=== PATIENT | female | born 1995 | race Caucasian/White ===

== ENCOUNTER 2016-09-28 10:09 | Emergency (ER) | payer OTHER ==
[2016-09-28 10:20] VITALS: BP 117/78
--- NOTE | 2016-09-28 10:22 | EDM.PDOC ---
<Marcela Smith - Last Filed: 09/28/16 10:40> ED HPI RENAL/ - General Chief Complaint: Genitourinary Problem Stated Complaint: UTI Time Seen by Provider: 09/28/16 10:20 - History of Present Illness INITIAL COMMENTS - FREE TEXT/NARRATIVE: Patient presents to the ER with c/o burning, frequency, urgency, dysuria for about 1 week. She states she drank quite a bit of cranberry juice and she thought the symptoms had improved, but last night the symptoms returned. She denies fever/chills, N/V/D. LMP 09/19/16. Symptom Onset Date: 09/21/16 Timing/Duration: Reports: Intermittent Location: Reports: urethral Quality: Reports: burning Severity: moderate Worsens with: Reports: urinating Associated Symptoms: Reports: burning, dysuria, frequency, urgency, voiding small amounts - Related Data Allergies/ADRs: Allergies Allergy/AdvReac Type Severity Reaction Status Date / Time Penicillins Allergy Blisters Verified 09/28/16 10:22 Home Meds: Home Meds . [No Known Home Meds] 09/28/16 [History] ED ROS GENERAL - Review of Systems Review Of Systems: ROS reveals no pertinent complaints other than HPI. ED EXAM, RENAL/ - Physical Exam Exam: See Below Exam Limited By: No limitations General Appearance: alert, WD/WN, no apparent distress Eye Exam: bilateral eye: normal inspection Ears: normal external exam, normal canal, hearing grossly normal, normal TMs Nose: normal inspection, normal mucosa, no blood Throat/Mouth: Normal inspection, Normal lips, Normal teeth, Normal gums, Normal oropharynx, Normal voice, No airway compromise Head: atraumatic, normocephalic Neck: normal inspection, supple, non-tender, full range of motion Respiratory/Chest: no respiratory distress, lungs clear, normal breath sounds, no accessory muscle use, chest non-tender Cardiovascular: normal peripheral pulses, regular rate, rhythm, no edema, no gallop, no JVD, no murmur, no rub GI/Abdominal: normal bowel sounds, soft, non tender, no organomegaly, no distention, no abnormal bruit, no mass (Female) Exam: Deferred Rectal (Female) Exam: Deferred Back Exam: normal inspection, full range of motion, NT Extremities: normal inspection, normal range of motion, non-tender, normal capillary refill, no pedal edema Neurological: alert, oriented, CN II-XII intact, normal cognition, normal gait, normal reflexes, no motor/sensory deficits Psychiatric: normal affect, normal mood Skin Exam: Warm, Dry, Intact, Normal color, No rash Lymphatic: no adenopathy Course - Vital Signs Last Recorded V/S: Last Vital Signs Temp 36.6 C 09/28/16 10:19 Pulse 63 09/28/16 10:19 Resp 16 09/28/16 10:19 BP 117/78 09/28/16 10:19 Pulse Ox 100 09/28/16 10:19 - Orders/Labs/Meds Orders: Active Orders 24 hr Category Date Time Status CULTURE URINE [RM] Stat Lab 09/28/16 10:16 Received Labs: Laboratory Tests 09/28/16 09/28/16 Range/Units 10:16 10:16 Urine Color Light yellow (YELLOW) Urine Appearance Turbid (CLEAR) Urine pH 7.5 (5.0-9.0) Ur Specific [place] 1.020 (1.005-1.030) Urine Protein 30 H (NEGATIVE) Urine Glucose (UA) Negative (NEGATIVE) Urine Ketones Negative (NEGATIVE) Urine Occult Blood Large H (NEGATIVE) Urine Nitrite Negative (NEGATIVE) Urine Bilirubin Negative (NEGATIVE) Urine Urobilinogen 0.2 (0.2-1.0) mg/dL Ur Leukocyte Esterase Large H (NEGATIVE) Urine RBC 50-75 H /HPF Urine WBC >100 H (0-5/HPF) /HPF Ur Epithelial Cells Moderate H /HPF Urine Bacteria Many H (0-FEW/HPF) /HPF Urine HCG, Qual Negative Departure - Departure Time of Disposition: 10:34 Disposition: Home, Self-Care 01 Condition: good Clinical Impression: UTI, Urinary tract infectious disease Instructions: Urinary Tract Infection, Adult, [id number] Forms: ED Department Discharge Additional Instructions: Macrobid 100m orally twice daily for 7 days. Drink lots of fluid. Follow up with primary care provider in 7 to 10 days for urine recheck. <Pascual Adler - Last Filed: 09/28/16 10:41> ED HPI RENAL/ - General Source of Information: Reports: Patient, RN, RN notes reviewed History Limitations: Reports: No limitations Social & Family History - Family History Family Medical History: Noncontributory - Living Situation & Occupation Living situation: Reports: with family ED ROS GENERAL - Review of Systems Review Of Systems: ROS reveals no pertinent complaints other than HPI. Course - Orders/Labs/Meds Labs: Laboratory Tests 09/28/16 09/28/16 Range/Units 10:16 10:16 Urine Color Light yellow (YELLOW) Urine Appearance Turbid (CLEAR) Urine pH 7.5 (5.0-9.0) Ur Specific [place] 1.020 (1.005-1.030) Urine Protein 30 H (NEGATIVE) Urine Glucose (UA) Negative (NEGATIVE) Urine Ketones Negative (NEGATIVE) Urine Occult Blood Large H (NEGATIVE) Urine Nitrite Negative (NEGATIVE) Urine Bilirubin Negative (NEGATIVE) Urine Urobilinogen 0.2 (0.2-1.0) mg/dL Ur Leukocyte Esterase Large H (NEGATIVE) Urine RBC 50-75 H /HPF Urine WBC >100 H (0-5/HPF) /HPF Ur Epithelial Cells Moderate H /HPF Urine Bacteria Many H (0-FEW/HPF) /HPF Urine HCG, Qual Negative - Re-Assessments/Exams Free Text/Narrative Re-Assessment/Exam: 09/28/16 10:21 FOR THIS ENCOUNTER THE PATIENT WAS SEEN IN CONJUNCTION WITH [facility] STUDENT MARCELA SMITH. ALL PATIENT CARE AND/OR PROCEDURE(S), DIAGNOSTIC ORDERS, MEDICATION(S) AND TREATMENT ORDERS, DISPOSITION ORDERS/PLANNING, AND DISCHARGE/FOLLOW UP INSTRUCTIONS WERE UNDER MY DIRECT SUPERVISION. jocy
== END 2016-09-28 10:45 | disposition home or self-care (01) ==
LOC: DL.ED 10:09
DX: N39.0 Urinary tract infection, site not specified (principal); Z88.0 Allergy status to penicillin
CPT/HCPCS: 81001; 81025; 87086; 99283

== ENCOUNTER 2017-03-09 04:20 | Observation (INO) | payer OTHER ==
--- NOTE | 2017-03-09 04:22 | EDM.PDOCBH ---
ED HPI GENERAL MEDICAL PROBLEM - General Stated Complaint: IN BY [facility] Time Seen by Provider: 03/09/17 04:20 Source of Information: Reports: Patient, EMS History Limitations: Reports: No Limitations - History of Present Illness INITIAL COMMENTS - FREE TEXT/NARRATIVE: EMS state pt's boy friend called re; pt leaving note taking meds to kill herself which pt denies. pt states never took any pills at all. Headache Pain Score (Numeric/FACES): 8 - Related Data Allergies Allergy/AdvReac Type Severity Reaction Status Date / Time Penicillins Allergy Blisters Verified 03/09/17 04:21 Home Meds: Home Meds . [No Known Home Meds] 09/28/16 [History] Past Medical History - Infectious Disease History Infectious Disease History: Reports: None - Past Surgical History HEENT Surgical History: Reports: Eye Surgery, Oral Surgery, Tonsillectomy Social & Family History - Family History Family Medical History: Noncontributory - Tobacco Use Smoking Status *Q: Current Every Day Smoker Years of Tobacco use: 2 Packs/Tins Daily: 0.5 - Caffeine Use Caffeine Use: Reports: None - Recreational Drug Use Recreational Drug Use: No - Living Situation & Occupation Living situation: Reports: with Family ED ROS GENERAL - Review of Systems Review Of Systems: ROS reveals no pertinent complaints other than HPI. ED EXAM, BEHAVIORAL HEALTH - Physical Exam Exam: See Below Exam Limited By: No Limitations General Appearance: Alert, WD/WN, No Apparent Distress, Other (pleasant ) Eye Exam: Bilateral Eye: PERRL (pupils ER @ 4mm) Ears: Hearing Grossly Normal Throat/Mouth: Normal Voice, No Airway Compromise Head: Atraumatic Neck: Non-Tender, Full Range of Motion Respiratory/Chest: No Respiratory Distress Cardiovascular: Regular Rate, Rhythm GI/Abdominal: Soft, Non-Tender Neurological: Alert, Normal Mood/Affect, Normal Cognition, Normal Gait, Oriented x 3 Psychiatric: Alert, Normal Affect, Normal Cognition, Normal Mood, Oriented Skin Exam: Warm, Dry, Normal color COURSE, BEHAVIORAL HEALTH COMP - Course Vital Signs: Last Vital Signs Temp 36.3 C 03/09/17 04:23 Pulse 76 03/09/17 04:23 Resp 18 03/09/17 04:23 BP 121/89 03/09/17 04:23 Pulse Ox 97 03/09/17 04:23 Orders, Labs, Meds: Active Orders 24 hr Category Date Time Status EKG 12 Lead [EKG Documentation Completion] [RC] STAT Care 03/09/17 04:31 Active Sodium Chloride 0.9% [Normal Saline] 1,000 ml Med 03/09/17 05:45 Ordered IV .BOLUS Laboratory Tests 03/09/17 03/09/17 03/09/17 Range/Units 04:18 04:18 04:18 WBC (5.0-10.0) 10^3/uL RBC (4.2-5.4) 10^6/uL Hgb (12.0-16.0) g/dL Hct (37.0-47.0) % MCV (80-100) fL MCH (27.0-34.0) pg MCHC (33.0-35.0) g/dL Plt Count (150-450) 10^3/uL Neut % (Auto) (42.2-75.2) % Lymph % (Auto) (20.5-50.1) % [place] % (Auto) (2-8) % Eos % (Auto) (1.0-3.0) % Baso % (Auto) (0.0-1.0) % Sodium (135-145) mmol/L Potassium (3.6-5.0) mmol/L Chloride (101-111) mmol/L Carbon Dioxide (21.0-31.0) mmol/L Anion Gap BUN (7-18) mg/dL Creatinine (0.6-1.3) mg/dL Est Cr Clr Drug Dosing mL/min Estimated GFR (MDRD) BUN/Creatinine Ratio Glucose (74-105) mg/dL Calcium (8.4-10.2) mg/dl Total Bilirubin (0.2-1.0) mg/dL AST (10-42) IU/L ALT (10-60) IU/L Alkaline Phosphatase (42-121) IU/L Total Protein (6.7-8.2) g/dl Albumin (3.2-5.5) g/dl Globulin Albumin/Globulin Ratio Urine Color Yellow (YELLOW) Urine Appearance Clear (CLEAR) Urine pH 6.0 (5.0-9.0) Ur Specific [place] 1.010 (1.005-1.030) Urine Protein Negative (NEGATIVE) Urine Glucose (UA) Negative (NEGATIVE) Urine Ketones Negative (NEGATIVE) Urine Occult Blood Moderate H (NEGATIVE) Urine Nitrite Negative (NEGATIVE) Urine Bilirubin Negative (NEGATIVE) Urine Urobilinogen 0.2 (0.2-1.0) mg/dL Ur Leukocyte Esterase Negative (NEGATIVE) Urine HCG, Qual Negative Salicylates Urine Opiates Screen Negative (NEGATIVE) Ur Oxycodone Screen Negative (NEGATIVE) Urine Methadone Screen Negative (NEGATIVE) Acetaminophen Ur Barbiturates Screen Negative (NEGATIVE) U Tricyclic Antidepress Negative (NEGATIVE) Ur Phencyclidine Scrn Negative (NEGATIVE) Ur Amphetamine Screen Positive H (NEGATIVE) U Methamphetamines Scrn Positive H (NEGATIVE) Urine MDMA Screen Negative (NEGATIVE) U Benzodiazepines Scrn Negative (NEGATIVE) Urine Cocaine Screen Negative (NEGATIVE) U Marijuana (THC) Screen Positive H (NEGATIVE) Ethyl Alcohol mg/dL 03/09/17 03/09/17 Range/Units 04:38 04:38 WBC 10.2 H (5.0-10.0) 10^3/uL RBC 4.17 L (4.2-5.4) 10^6/uL Hgb 12.9 (12.0-16.0) g/dL Hct 38.4 (37.0-47.0) % MCV 92.1 (80-100) fL MCH 30.9 (27.0-34.0) pg MCHC 33.6 (33.0-35.0) g/dL Plt Count 335 (150-450) 10^3/uL Neut % (Auto) 66.3 (42.2-75.2) % Lymph % (Auto) 25.3 (20.5-50.1) % [place] % (Auto) 7.3 (2-8) % Eos % (Auto) 0.9 L (1.0-3.0) % Baso % (Auto) 0.2 (0.0-1.0) % Sodium 141 (135-145) mmol/L Potassium 4.0 (3.6-5.0) mmol/L Chloride 106 (101-111) mmol/L Carbon Dioxide 23.0 (21.0-31.0) mmol/L Anion Gap 16.0 BUN 14 (7-18) mg/dL Creatinine 0.7 (0.6-1.3) mg/dL Est Cr Clr Drug Dosing 123.63 mL/min Estimated GFR (MDRD) > 60 BUN/Creatinine Ratio 20.00 Glucose 95 (74-105) mg/dL Calcium 9.9 (8.4-10.2) mg/dl Total Bilirubin 0.4 (0.2-1.0) mg/dL AST 22 (10-42) IU/L ALT 16 (10-60) IU/L Alkaline Phosphatase 49 (42-121) IU/L Total Protein 7.9 (6.7-8.2) g/dl Albumin 4.6 (3.2-5.5) g/dl Globulin 3.3 Albumin/Globulin Ratio 1.39 Urine Color (YELLOW) Urine Appearance (CLEAR) Urine pH (5.0-9.0) Ur Specific [place] (1.005-1.030) Urine Protein (NEGATIVE) Urine Glucose (UA) (NEGATIVE) Urine Ketones (NEGATIVE) Urine Occult Blood (NEGATIVE) Urine Nitrite (NEGATIVE) Urine Bilirubin (NEGATIVE) Urine Urobilinogen (0.2-1.0) mg/dL Ur Leukocyte Esterase (NEGATIVE) Urine HCG, Qual Salicylates < 4 Urine Opiates Screen (NEGATIVE) Ur Oxycodone Screen (NEGATIVE) Urine Methadone Screen (NEGATIVE) Acetaminophen < 10 Ur Barbiturates Screen (NEGATIVE) U Tricyclic Antidepress (NEGATIVE) Ur Phencyclidine Scrn (NEGATIVE) Ur Amphetamine Screen (NEGATIVE) U Methamphetamines Scrn (NEGATIVE) Urine MDMA Screen (NEGATIVE) U Benzodiazepines Scrn (NEGATIVE) Urine Cocaine Screen (NEGATIVE) U Marijuana (THC) Screen (NEGATIVE) Ethyl Alcohol < 5 mg/dL Re-Assessment/Re-Exam: crisis center arrived to evaluate. case discussed with Dr Streeter who kindly admitted pt to observation. Departure - Departure Time of Disposition: 05:47 Disposition: Refer to Observation Condition: Good Clinical Impression: Depressive disorder, Suicidal ideation - Discharge Information Forms: ED Department Discharge - My Orders Last 24 Hours: My Active Orders 03/09/17 04:31 EKG 12 Lead [EKG Documentation Completion] [RC] STAT 03/09/17 05:45 Sodium Chloride 0.9% [Normal Saline] 1,000 ml IV .BOLUS - Assessment/Plan Last 24 Hours: My Active Orders 03/09/17 04:31 EKG 12 Lead [EKG Documentation Completion] [RC] STAT 03/09/17 05:45 Sodium Chloride 0.9% [Normal Saline] 1,000 ml IV .BOLUS
[2017-03-09 05:03] LABS: CHLORIDE,CL 106 mmol/L (101-111); SODIUM,NA 141 mmol/L (135-145)
[2017-03-09 05:04] LABS: ACETAMINOPHEN < 10
[2017-03-09] MEDS ORDERED: Sodium Chloride 0.9% 1,000 ML IV ONE (05:45)
--- NOTE | 2017-03-09 07:35 | PCM.HP ---
H&P History of Present Illness - General Date of Service: 03/09/17 Admit Problem/Dx: admiited for observation, pt was brought to ED by EMT, when her Boyfriend reported to EMT that pt is going to commit suicide by taking Zoloft Source of Information: Patient History Limitations: Reports: No Limitations - History of Present Illness Initial Comments - Free Text/Narative: This is a pleasant 21 Y/O F with no past medical history but she said she is very anxious. She was seen at [facility] By Dr. Ashley Gomez on 06/05/16 with anxiety and depression and prescribed her Zoloft 25 mg daily for 8 days and then increase to 50 mg with follow up in 4-6 weeks. According to pt she ran out of the medication long time ago and never followed with Dr. Gomez and never got any refil of the medication and currently she is not taking any medication. Last night she had an argument with her Boyfriend and she wrote a letter and called to her Boyfriend about her intention of commiting suicide by taking Medication ( Zoloft), but the pt denying she did not take any medication and she does not have any medication at home. ED contacted poison Control and Recommended to observer the pt for 8 hrs and repeat EKG and can be discharge. she will be followed by crisis Control center of [facility] Onset of Symptoms: Reports: Today Headache Pain Score (Numeric/FACES): 8 - Related Data Allergies/Adverse Reactions: Allergies Allergy/AdvReac Type Severity Reaction Status Date / Time Penicillins Allergy Blisters Verified 03/09/17 06:35 Home Medications: Home Meds . [No Known Home Meds] 09/28/16 [History] Past Medical History Cardiovascular History: Reports: None Respiratory History: Reports: None Gastrointestinal History: Reports: None Genitourinary History: Reports: None RIVET [employer]ER History: Reports: None Musculoskeletal History: Reports: None Neurological History: Reports: Migraines Psychiatric History: Reports: Anxiety, Depression, Suicide Attempt Endocrine/Metabolic History: Reports: None Hematologic History: Reports: None Immunologic History: Reports: None Oncologic (Cancer) History: Reports: None Dermatologic History: Reports: None - Infectious Disease History Infectious Disease History: Reports: None - Past Surgical History HEENT Surgical History: Reports: Adenoidectomy, Eye Surgery, Oral Surgery, Tonsillectomy Neurological Surgical History: Reports: None Social & Family History - Family History Family Medical History: Noncontributory - Tobacco Use Smoking Status *Q: Current Every Day Smoker Years of Tobacco use: 2 Packs/Tins Daily: 0.5 Used Tobacco, but Quit: No Second Hand Smoke Exposure: Yes - Caffeine Use Caffeine Use: Reports: Coffee, Energy Drinks, Tea - Recreational Drug Use Recreational Drug Use: Yes Drug Use in Last 12 Months: Yes Recreational Drug Type: Reports: Marijuana/Hashish Recreational Drug Use Frequency: Weekly Recreational Drug Last Use: 03/08/17 - Living Situation & Occupation Living situation: Reports: with Family H&P Review of Systems - Review of Systems: Review Of Systems: See Below General: Denies: Fever, Chills, Weakness HEENT: Reports: Headaches. Denies: Sinus Congestion, Sore Throat, Visual Changes Pulmonary: Denies: Shortness of Breath, Wheezing, Pleuritic Chest Pain, Cough, Sputum Cardiovascular: Denies: Chest Pain, Palpitations, Dyspnea on Exertion, Lightheadedness Gastrointestinal: Denies: Abdominal Pain, Distension, Vomiting Genitourinary: Denies: Dysuria, Burning, Urgency, Retention Musculoskeletal: Denies: Neck Pain, Shoulder Pain, Joint Pain, Joint Swelling, Muscle Stiffness Skin: Denies: Cyanosis, Jaundice, Bruising, Pruritis, Rash Psychiatric: Denies: Confusion, Anxiety Neurological: Reports: No Symptoms Hematologic/Lymphatic: Reports: No Symptoms Exam - Exam Exam: See Below - Vital Signs Vital Signs: Last Vital Signs Temp 36.3 C 03/09/17 04:23 Pulse 76 03/09/17 04:23 Resp 18 03/09/17 04:23 BP 121/89 03/09/17 04:23 Pulse Ox 97 03/09/17 04:23 Weight: 68.039 kg - Exam Quality Assessment: No: Supplemental Oxygen, Urinary Catheter, DVT Prophylaxis, Skin Breakdown, Restraints General: Alert, Oriented, Cooperative HEENT: Conjunctiva Clear, Mucosa Moist & [place], Normal Nasal Septum, Pupils Reactive Neck: Supple. No: Lymphadenopathy, JVD, Thyromegaly Lungs: Clear to Auscultation, Normal Respiratory Effort Cardiovascular: Regular Rate, Regular Rhythm GI/Abdominal Exam: Normal Bowel Sounds, Soft, Non-Tender, No Organomegaly, No Distention. No: Guarding, Rebound (Female) Exam: Deferred Rectal (Female) Exam: Deferred Back Exam: Normal Inspection, Full Range of Motion Extremities: Normal Inspection, No Pedal Edema Skin: Warm, Dry, Intact Neurological: Cranial Nerves Intact Neuro Extensive - Mental Status: Alert, Oriented x3, Normal Mood/Affect, Normal Cognition, Memory Intact Neuro Extensive - Motor, Sensory, Reflexes: CN II-XII Intact, Normal Gait, Normal Reflexes Psychiatric: Alert, Normal Affect, Normal Mood - Patient Data Result Diagrams: 03/09/17 04:38 03/09/17 04:38 EKG INTERPRETATION EKG Date: 03/09/17 Rhythm: NSR Kirvin: Normal P-Wave: Present QRS: Normal ST-T: Normal QT: Normal (Normal 12-lead EKG) *Q Meaningful Use (ADM) - VTE *Q VTE Criteria *Q: - Stroke *Q Stroke Criteria *Q: - AMI *Q AMI Criteria *Q: - Problem List (1) Depressive disorder SNOMED Code(s): 27793267 ICD Code: F32.9 - MAJOR DEPRESSIVE DISORDER, SINGLE EPISODE, UNSPECIFIED Status: Acute Current Visit: Yes (2) Suicidal ideation SNOMED Code(s): 5519446, 484680238 ICD Code: R45.851 - SUICIDAL IDEATIONS Status: Acute Current Visit: Yes Problem List Initiated/Reviewed/Updated: Yes Assessment/Plan Comment:: 21 y/o pleasant female admitted with suicidal ideation 1. Suicidal Ideation: I did long discussion with pt and she stated that she is anxios most of the time but that did not impair her ability in anyway -She works at [employer] and had no issue with her daily life and work - Once she was seen at [facility] By Dr. Ashley Gomez on with anxiety and depression and she prescribed her Zoloft 25 mg daily for 8 days and then increase to 50 mg with follow up in 4-6 weeks. According to pt she ran out of the medication long time ago and never followed with Dr. Gomez and never got any refill of the medication and currently she is not taking any medication. Last night she had an argument with her Boyfriend and she wrote a letter and called to her Boyfriend about her intention of committing suicide by taking Medication ( Zoloft), but the pt saying she did not take any medication and she does not have any medication at home. ED contacted poison Control and Recommended to observer the pt for 8 hrs and repeat EKG in 8 hrs and if no change then and can be discharge and crisis Control center of the [facility] will be following her. -Will observe for Seizure, Monitor Temperature for q2 hrs and will get Repeat EKG in 6-8 hrs -She has received NS bolus of 1000 ml 2. Drug use: Pt's urine is positive for Methamphetamine and Marijuana, she needs counseling to stay away from street drug
[2017-03-09] MEDS ORDERED: Docusate Sodium 100 MG Cap PO PRN (07:53)
[2017-03-09] MEDS ORDERED: Acetaminophen 325 MG Tab PO PRN (07:53)
[2017-03-09 11:16] VITALS: BP 116/70
--- NOTE | 2017-03-09 13:18 | PCM.DCSUM1 ---
Discharge Summary - Hospital Course Free Text/Narrative:: This is a pleasant 21 Y/O F with no past medical history but she said she is very anxious. She was seen at [facility] By Dr. Ashley Gomez on 06/05/16 with anxiety and depression and prescribed her Zoloft 25 mg daily for 8 days and then increase to 50 mg with follow up in 4-6 weeks. According to pt she ran out of the medication long time ago and never followed with Dr. Gomez and never got any refil of the medication and currently she is not taking any medication. Last night she had an argument with her Boyfriend and she wrote a letter and called to her Boyfriend about her intention of commiting suicide by taking Medication ( Zoloft), but the pt denying she did not take any medication and she does not have any medication at home. ED contacted poison Control and Recommended to observe the pt for 8 hrs and repeat EKG and can be discharge if there is no EKG changes and she will be followed by crisis Control center of [facility] . Crisis Center [facility] came today at 11:00 AM and they discussed with pt and Boyfriend and Pt's grandmother, all agreed for for going home and did not want any intervention by Crisis center. Pt has the number of the crisis Center and at any event she can call them. I have Repeated her EKD and it is in NSR and normal QT and QTc. She has no sign of seizure and behavioral changes. Copy of note from Crisis Center [facility] will be scanned ( hand written Note) HPI Initial Comments: She was admitted with suicidal attempt with Zoloft overdose and her EKG remain normal and as per Crisis Center she can be discharge. The note from Crisis Center of [facility] will be scaned ( hand written Note) - Discharge Data Discharge Date: 03/09/17 Discharge Disposition: Home, Self-Care 01 Condition: Good - Discharge Diagnosis/Problem(s) (1) Depressive disorder SNOMED Code(s): 66833243 ICD Code: F32.9 - MAJOR DEPRESSIVE DISORDER, SINGLE EPISODE, UNSPECIFIED Status: Acute Current Visit: Yes (2) Suicidal ideation SNOMED Code(s): 4776988, 806398442 ICD Code: R45.851 - SUICIDAL IDEATIONS Status: Acute Current Visit: Yes - Patient Instructions Diet: Regular Diet as Tolerated Activity: As Tolerated Driving: May Drive Today Showering/Bathing: May Shower Notify Provider of: Fever, Nausea and/or Vomiting (Increased palpitation, Cchest tightness) Other/Special Instructions: Pt will be discharge and advise to Call Crisis line ( she will get the Instruction from crisis center). Advise to come to ED if there increase in chest tightness, abnormal Heart rate, lightheadedness, Nausea , unsteadyness, Vision change, Jerky Movement, abnormal Limb movement. Follow with PMD in a week - Discharge Plan Home Medications: Home Meds . [No Known Home Meds] 09/28/16 [History] Patient Handouts: Suicidal Feelings: How to Help Yourself, Drug Overdose, Major Depressive Disorder Forms: ED Department Discharge Referrals: PCP,Unobtain [Primary Care Provider] - - Discharge Summary/Plan Comment DC Time >30 min.: Yes Discharge Summary/Plan Comment: Pt will be discharge to home and will follow with PMD and go to AA for problem with drug use. Will give her Instruction paper written by Crisis center. Copy of the paper will be scanned. - General Info Date of Service: 03/09/17 Admission Dx/Problem (Free Text: Admiited for observation, pt was brought to ED by EMT, when her Boyfriend reported to EMT that pt is going to commit suicide by taking Zoloft Functional Status: Reports: Pain Controlled, Tolerating Diet, Ambulating, Urinating - Review of Systems General: Reports: No Symptoms, Appetite (good). Denies: Fever, Chills HEENT: Denies: Headaches, Sinus Congestion, Sore Throat Pulmonary: Denies: Shortness of Breath, Cough, Sputum, Wheezing Cardiovascular: Denies: Chest Pain, Dyspnea on Exertion, Lightheadedness Gastrointestinal: Denies: Abdominal Pain, Nausea, Vomiting Genitourinary: Denies: Frequency, Burning, Urgency Musculoskeletal: Denies: Neck Pain, Arm Pain, Hand Pain, Leg Pain, Foot Pain Skin: Denies: Cyanosis, Jaundice, Bruising, Pruritis, Rash Neurological: Reports: Headache. Denies: Confusion, Numbness, Tingling, Tremors , Difficulty Walking, Weakness Psychiatric: Denies: Confusion, Anxiety - Patient Data Vitals - Most Recent: Last Vital Signs Temp 36.8 C 03/09/17 11:15 Pulse 80 08/19/17 11:15 Resp 20 03/09/17 11:15 BP 116/70 03/09/17 11:15 Pulse Ox 99 03/09/17 11:15 Weight - Most Recent: 68.039 kg I&O - Last 24 hours: Intake & Output 03/08/17 03/09/17 03/09/17 22:59 06:59 14:59 Intake Total 240 Balance 240 Med Orders - Current: Current Medications Acetaminophen (Tylenol) 650 mg PO Q4H PRN PRN Reason: Pain (mild 1-3 )/fever Docusate Sodium (Colace) 100 mg PO DAILY PRN PRN Reason: Constipation Discontinued Medications Sodium Chloride (Normal Saline) 1,000 mls @ 999 mls/hr IV .BOLUS ONE Stop: 03/09/17 06:45 Last Admin: 03/09/17 06:03 Dose: 999 mls/hr - Exam Quality Assessment: Denies: Supplemental Oxygen, Urine Catheter, DVT Prophylaxis General: Reports: Alert, Oriented, Cooperative, No Acute Distress HEENT: Reports: Pupils Equal, Mucous Membr. Moist/[place] Neck: Reports: Supple, No JVD. Denies: Lymphadenopathy Lungs: Reports: Clear to Auscultation, Normal Respiratory Effort Cardiovascular: Reports: Regular Rate, Regular Rhythm GI/Abdominal Exam: Normal Bowel Sounds. No: Guarding, Rebound (Female) Exam: Deferred Rectal (Female) Exam: Deferred Back Exam: Reports: Normal Inspection, Full Range of Motion Extremities: Normal Inspection, No Pedal Edema. No: Leg Pain Skin: Reports: Warm, Dry, Intact Neurological: Reports: No New Focal Deficit, Normal Gait, Normal Speech, Normal Tone Psy/Mental Status: Reports: Alert, Normal Affect, Normal Mood *Q Meaningful Use (DIS) - VTE *Q VTE Criteria *Q: - Stroke *Q Stroke Criteria *Q: - AMI *Q AMI Criteria *Q:
--- NOTE | 2017-03-26 11:35 | EKG ---
03/09/2017- LAXMI CARMICHAEL - This is a standard 12-lead EKG placement showing normal sinus rhythm with bradycardia, ventricular rate 59 beats per minute. Normal NC interval and QRS duration. No significant ST-T changes. [facility] /[id number]
--- NOTE | 2017-03-26 11:35 | EKG ---
03/09/2017- LAXMI CARMICHAEL - This is a standard 12-lead EKG showing normal sinus rhythm with a ventricular rate 65 beats per minute. Normal NC interval. Normal QRS duration. No ST-T changes. [facility] /[id number]
== END 2017-03-09 14:00 | disposition home or self-care (01) ==
LOC: DL.ED 04:20 → DL.MS 05:50 → UNDOADMOB 05:50 → DL.MS 07:53
PROVIDERS: ADMIT Internal Medicine Nephrology; ATTEND Internal Medicine Nephrology
DX: F32.9 Major depressive disorder, single episode, unspecified (principal); R45.851 Suicidal ideations; F17.210 Nicotine dependence, cigarettes, uncomplicated; F12.90 Cannabis use, unspecified, uncomplicated
CPT/HCPCS: 36415; 80053; 80305; 81003; 81025; 85025; 93005; 99285; G0480; J7030; 96360; G0378

== ENCOUNTER 2018-09-07 16:45 | Emergency (ER) | payer MEDICAID ==
[2018-09-07 17:02] VITALS: BP 141/82
[2018-09-07] MEDS ORDERED: Lidocaine 1% 30 ML SDV INJECT ONE (17:11)
[2018-09-07] MEDS ORDERED: Bacitracin Oint 1 GM U/D Packet TOP ONE (17:11)
[2018-09-07] MEDS ORDERED: Diphtheria,Pertussis(Acell),Tetanus Vaccine 0.5 ML SDV IM ONE (17:11)
--- NOTE | 2018-09-07 17:39 | EDM.PDOC ---
Scribed by Sheri Hanna 09/07/18 1527 for Harris Oden PA ED HPI GENERAL MEDICAL PROBLEM - General Chief Complaint: Bite:Animal, Insect Stated Complaint: GOT BITE IN FACE BY DOG Time Seen by Provider: 09/07/18 17:00 Source of Information: Reports: Patient, RN, RN Notes Reviewed History Limitations: Reports: No Limitations - History of Present Illness INITIAL COMMENTS - FREE TEXT/NARRATIVE: Patient states she was bit by her dog at 1600 hours. She has a 1 cm left nasal labial laceration. She has a 0.5 cm laceration on the bridge of the nose. She is not up to date on her tetanus. Onset: Today Location: Reports: Face Quality: Reports: Ache Severity: Moderate Improves with: Reports: None Worsens with: Reports: None Associated Symptoms: Reports: No Other Symptoms - Related Data Allergies Allergy/AdvReac Type Severity Reaction Status Date / Time Penicillins Allergy Blisters Verified 09/07/18 16:59 Home Meds: Home Meds . [No Known Home Meds] 09/28/16 [History] Past Medical History Cardiovascular History: Reports: None Respiratory History: Reports: None Gastrointestinal History: Reports: None Genitourinary History: Reports: None GRID CASTER History: Reports: None Musculoskeletal History: Reports: None Neurological History: Reports: Migraines Psychiatric History: Reports: Anxiety, Depression, Suicide Attempt Endocrine/Metabolic History: Reports: None Hematologic History: Reports: None Immunologic History: Reports: None Oncologic (Cancer) History: Reports: None Dermatologic History: Reports: None - Infectious Disease History Infectious Disease History: Reports: None - Past Surgical History HEENT Surgical History: Reports: Adenoidectomy, Eye Surgery, Oral Surgery, Tonsillectomy Neurological Surgical History: Reports: None Social & Family History - Family History Family Medical History: Noncontributory - Tobacco Use Smoking Status *Q: Current Every Day Smoker Years of Tobacco use: 7 Packs/Tins Daily: 1 - Caffeine Use Caffeine Use: Reports: None - Recreational Drug Use Recreational Drug Use: No - Living Situation & Occupation Living situation: Reports: with Family ED ROS GENERAL - Review of Systems Review Of Systems: ROS reveals no pertinent complaints other than HPI. ED EXAM, ANIMAL BITE - Physical Exam Exam: See Below Exam Limited By: No Limitations General Appearance: Alert, WD/WN, No Apparent Distress Eye Exam: Bilateral Eye: EOMI, Normal Inspection, PERRL Ears: Normal External Exam, Normal Canal, Hearing Grossly Normal, Normal TMs Nose: Normal Inspection, Normal Mucosa, No Blood Throat/Mouth: Other (The patient has several lacerations to the inside of her upper lip with no profuse bleeding) Head: Normocephalic Neck: Normal Inspection, Supple, Non-Tender, Full Range of Motion Respiratory/Chest: No Respiratory Distress, Lungs Clear, Normal Breath Sounds, No Accessory Muscle Use, Chest Non-Tender Cardiovascular: Normal Peripheral Pulses, Regular Rate, Rhythm, No Edema, No Gallop, No JVD, No Murmur, No Rub GI/Abdominal: Normal Bowel Sounds, Soft, Non-Tender, No Organomegaly, No Distention, No Abnormal Bruit, No Mass (Female) Exam: Deferred Rectal (Female) Exam: Deferred Back Exam: Normal Inspection, Full Range of Motion, NT Extremities: Normal Inspection, Normal Range of Motion, Non-Tender, Normal Capillary Refill, No Pedal Edema Neurological: Alert, Oriented, CN II-XII Intact, Normal Cognition, Normal Gait, Normal Reflexes, No Motor/Sensory Deficits Psychiatric: Normal Affect, Normal Mood Skin Exam: Normal Color, Warm/Dry, Other (The patient has a 0.5 cm laceration to the bridge of her nose and a 1.0 cm laceration near the left nasolabial fold. ) Lymphatic: No Adenopathy ED ANIMAL BITE PROCEDURES - Laceration/Wound Repair Medial Nose Lac/Wound Length In cm: 0.5 Appearance: Linear Distal NVT: Neuro & Vascular Intact Skin Prep: Chlorhexidine (Hibiciens) Exploration/Debridement/Repair: Wound Explored, In a Bloodless Field Closed With: Dermabond Drain Placement: No Sterile Dressing Applied: None Tetanus Status Addressed: Yes Complications: No Left Face Lac/Wound Length In cm: 1.0 Appearance: Subcutaneous Distal NVT: Neuro & Vascular Intact Anesthetic Type: Local Local Anesthesia - Lidocaine (Xylocaine): 1% Plain Local Anesthetic Volume: 2cc Skin Prep: Chlorhexidine (Hibiciens) Exploration/Debridement/Repair: Wound Explored, In a Bloodless Field, No Foreign Material Found Closed With: Sutures Suture Size: other (5-0) # of Sutures: 2 Suture Type: Prolene, Interrupted, Simple Drain Placement: No Sterile Dressing Applied: Nurse Tetanus Status Addressed: Yes Complications: No Course - Vital Signs Last Recorded V/S: Last Vital Signs Temp 36.8 C 09/07/18 16:59 Pulse 88 09/07/18 16:59 Resp 18 09/07/18 16:59 BP 141/82 H 09/07/18 16:59 Pulse Ox 99 09/07/18 16:59 - Orders/Labs/Meds Orders: Active Orders 24 hr Category Date Time Status Vaccines to be Administered [RC] PER UNIT ROUTINE Care 09/07/18 17:11 Ordered Meds: Medications Discontinued Medications Generic Name Dose Route Start Last Admin Trade Name Freq PRN Reason Stop Dose Admin Bacitracin 1 dose 09/07/18 17:11 09/07/18 17:16 Bacitracin Oint 1 Gm TOP 09/07/18 17:12 1 dose ONETIME ONE Administration Diphtheria/Tetanus/Acell Pertussis 0.5 ml 09/07/18 17:11 09/07/18 17:16 Adacel IM 09/07/18 17:12 0.5 ml .ONCE ONE Administration Lidocaine HCl 30 ml 09/07/18 17:11 09/07/18 17:16 Xylocaine-Mpf 1% INJECT 09/07/18 17:12 30 ml ONETIME ONE Administration Departure - Departure Time of Disposition: 17:33 Disposition: Home, Self-Care 01 Condition: Fair Clinical Impression: Dog bite Qualifiers: Encounter type: initial encounter Qualified Code(s): W54.0XXA - Bitten by dog, initial encounter Facial laceration Qualifiers: Encounter type: initial encounter Qualified Code(s): S01.81XA - Laceration without foreign body of other part of head, initial encounter - Discharge Information *PRESCRIPTION DRUG MONITORING PROGRAM REVIEWED*: Not Applicable *COPY OF PRESCRIPTION DRUG MONITORING REPORT IN PATIENT GAMALIEL: Not Applicable Instructions: Animal Bite, [id number] Forms: ED Department Discharge Care Plan Goals: The patient was advised of the examination results during the visit. The wound margins were well approximated during the visit. The patient was given an oral dose of Keflex while in the ED. The patient was discharged with a script for Keflex (500 mg) #21 to take 1 by mouth for 7 days. If the patient has any additional symptoms or concerns, the patient should either return to the emergency department or visit her primary care facility. - My Orders Last 24 Hours: My Active Orders 09/07/18 17:11 Vaccines to be Administered [RC] PER UNIT ROUTINE - Assessment/Plan Last 24 Hours: My Active Orders 09/07/18 17:11 Vaccines to be Administered [RC] PER UNIT ROUTINE I have read and agree with the documentation that has been completed regarding this visit. By signing this record, I attest that the documentation was completed in my physical presence and is an accurate record of the encounter.
[2018-09-07] MEDS ORDERED: Cephalexin 500 MG Cap PO ONE (17:45)
== END 2018-09-07 17:55 | disposition home or self-care (01) ==
LOC: DL.ED 16:45
DX: S01.81XA Laceration without foreign body of other part of head, initial encounter (principal); Z23 Encounter for immunization; F17.210 Nicotine dependence, cigarettes, uncomplicated; W54.0XXA Bitten by dog, initial encounter
CPT/HCPCS: 12011; 40830; 90471; 90715; 99283; A9270-GY; J2001